=== PATIENT | female | born 1995 | race African-American/Black ===

== ENCOUNTER 2017-12-07 20:13 | Emergency (ER) | payer OTHER ==
[~2017-12-07] VITALS: Ht 170.2 cm; Wt 106.6 kg
[2017-12-07 20:31] VITALS: BP 112/72
[2017-12-07 23:35] VITALS: BP 110/74
== END 2017-12-07 23:35 | disposition home or self-care (01) ==
LOC: MED 20:13
DX: H60.92 Unspecified otitis externa, left ear (principal)
CPT/HCPCS: 99283

== ENCOUNTER 2018-07-26 07:20 | Emergency (ER) | payer OTHER ==
[~2018-07-26] VITALS: Ht 167.6 cm; Wt 96.6 kg
[2018-07-26 07:29] VITALS: BP 137/72
--- NOTE | 2018-07-26 07:50 | NUR ---
bib self with c/o 4/10 mid back radiating to upper mid back x 6 days, progressively getting worse. Patient denies any recent fall or injury to back. Patient sts she feels it is due to lifting heavy objects. DENIES N/V/D; SKIN IS PINK/WARM/DRY; AAOX4 WITH EVEN AND STEADY GAIT; LUNGS CLEAR BL; HR EVEN AND REGULAR; PT DENIES ANY FEVER, CP, SOB, OR COUGH AT THIS TIME; PATIENT STATES PAIN OF 4/10 AT THIS TIME; VSS; PATIENT POSITIONED FOR COMFORT; HOB ELEVATED; BEDRAILS UP X2; BED DOWN. ER MD MADE AWARE OF PT STATUS.
[2018-07-26] MEDS ORDERED: KETOROLAC 60 MG/2 ML VIAL IM ONE (08:10)
[2018-07-26] MEDS ORDERED: cefTRIAXone 1,000 MG in LIDOCAINE MPF 1% - 5 mL VIAL 2.1 ML IM ONE (08:45)
--- NOTE | 2018-07-26 09:36 | NUR ---
Patient discharged with v/s stable. Written and verbal after care instructions given and explained. Patient alert, oriented and verbalized understanding of instructions. Ambulatory with steady gait. All questions addressed prior to discharge. ID band removed. Patient advised to follow up with PMD. Rx of NAPROSYN AND CIPROFLOXACIN given. Patient educated on indication of medication including possible reaction and side effects BY . Opportunity to ask questions provided and answered.
== END 2018-07-26 09:36 | disposition home or self-care (01) ==
LOC: MED 07:20
DX: N39.0 Urinary tract infection, site not specified (principal)
CPT/HCPCS: 81002; 81025; 96372; 99283; J0696; J1885; J2001

== ENCOUNTER 2019-01-12 10:44 | Emergency (ER) | payer OTHER ==
[~2019-01-12] VITALS: Ht 170.2 cm; Wt 108.9 kg
[2019-01-12 10:48] VITALS: BP 127/75
--- NOTE | 2019-01-12 11:11 | NUR ---
BIB SELF. C/O RIGHT EYE PAIN X 3 DAYS AGO WORSENING TODAY, HEADACHE X 1 WEEK AGO. PT STATES MILD BLURRED VISION TO THE RIGHT EYE WHILE AWAKE THIS AM. WEAR THE GLASSESS REGULARLY. DENIES PAIN AT THIS TIME BUT PAIN IS 10/10 WHILE IT HIURTS. SITTING UP AND SWALLOWING MAKES IT WORSE .PT DENIES EYE TRAUMA/INJURY. NO EYE DISCHARGE NOTED. PT TOOK ALEEVE YESTERDAY WITH MILD RELIEF. PT DENIES DIZZINESS. PT HAS STEADY GAIT. MED HX: DENIES MED RX: DENIES ALLERGIES: DENIES
--- NOTE | 2019-01-12 11:12 | NUR ---
SANGEETA STOCKTON AT THE BEDSIDE ASSESSING THE PT.
--- NOTE | 2019-01-12 11:20 | NUR ---
Patient discharged with v/s stable. Written and verbal after care instructions given and explained. Patient alert, oriented and verbalized understanding of instructions. Ambulatory with steady gait. All questions addressed prior to discharge. ID band removed. Patient advised to follow up with PMD. Rx of SULFACETAMIDE SODIUM 10% OPTHALMIC SOLUTION given. Patient educated on indication of medication including possible reaction and side effects. Opportunity to ask questions provided and answered.
[2019-01-12 11:23] VITALS: BP 127/75
== END 2019-01-12 11:20 | disposition home or self-care (01) ==
LOC: MED 10:44
DX: S05.01XA Injury of conjunctiva and corneal abrasion without foreign body, right eye, initial encounter (principal); H52.202 Unspecified astigmatism, left eye; X58.XXXA Exposure to other specified factors, initial encounter; Y93.89 Activity, other specified; Y92.89 Other specified places as the place of occurrence of the external cause; Y99.8 Other external cause status
CPT/HCPCS: 99283

== ENCOUNTER 2019-06-26 13:41 | Emergency (ER) | payer OTHER ==
[~2019-06-26] VITALS: Ht 172.7 cm; Wt 108.9 kg
[2019-06-26 13:41] VITALS: BP 116/73
--- NOTE | 2019-06-26 13:51 | NUR ---
PT TRIAGED, SENT BACK TO [facility]
[2019-06-26] MEDS ORDERED: ALBUTEROL 0.083% 2.5 MG/3 ML NEBU INH ONE (14:35)
--- NOTE | 2019-06-26 14:36 | NUR ---
Pt placed in chair C.
--- NOTE | 2019-06-26 14:45 | NUR ---
Pt moved to bed 8.
--- NOTE | 2019-06-26 15:00 | NUR ---
PT BIB SELF C/O COUGH AND CONGESTION X 3WEEKS. PT REPORTS WHEEZING STARTED TODAY. EXPIRATORY WHEEZES THROUGHOUT, RT AT BEDSIDE. VSS. ER MD TO SEE PT. PMH:DENIES RX:DENIES
[2019-06-26] MEDS ORDERED: ALBUTEROL SULFATE/IPRATROPIU 3 ML SOL IH ONE (15:15)
[2019-06-26] MEDS ORDERED: predniSONE 20 MG TAB PO ONE (15:15)
--- NOTE | 2019-06-26 15:22 | NUR ---
PT AMBULATED TO RESTROOM TO GIVE URINE SAMPLE AT THIS TIME
--- NOTE | 2019-06-26 16:37 | NUR ---
PT RESTING IN BED, AROUSABLE TO VOICE, AAOX4. RR EVEN AND NON LABORED, WHEEZES IN ANTERIOR UPPER LT LOBE. VSS.
[2019-06-26 17:16] VITALS: BP 122/64
--- NOTE | 2019-06-26 17:16 | NUR ---
Patient discharged with v/s stable. Written and verbal after care instructions given and explained. Patient alert, oriented and verbalized understanding of instructions. Ambulatory with steady gait. All questions addressed prior to discharge. ID band removed. Patient advised to follow up with PMD. Rx of PREDNISONE, AZITHROMYCIN, AND ALBUTEROL given. Patient educated on indication of medication including possible reaction and side effects. Opportunity to ask questions provided and answered.
== END 2019-06-26 17:16 | disposition home or self-care (01) ==
LOC: MED 13:41
DX: J40 Bronchitis, not specified as acute or chronic (principal)
CPT/HCPCS: 71046; 81025; 94640; 99284; J7512; J7613; J7620

== ENCOUNTER 2019-08-03 15:47 | Emergency (ER) | payer OTHER ==
[~2019-08-03] VITALS: Ht 172.7 cm; Wt 108.9 kg
[2019-08-03 16:08] VITALS: BP 128/74
--- NOTE | 2019-08-03 16:19 | NUR ---
C/O PRODUCTIVE COUGH, R EAR PAIN, SORE THROAT 5/10 X 2 DAYS. DENIES NVD OR FEVER AT THIS TIME. MED HX: DENIES
[2019-08-03] MEDS ORDERED: ACETAMINOPHEN EXTRA STRENGTH 500 MG TAB PO ONE (16:50)
[2019-08-03] MEDS: IBUPROFEN 600 MG TAB PO ONE ×2 (17:02→17:03)
[2019-08-03 17:06] VITALS: BP 121/68
--- NOTE | 2019-08-03 17:08 | NUR ---
Patient discharged with v/s stable. Written and verbal after care instructions given and explained. Patient alert, oriented and verbalized understanding of instructions. Ambulatory with steady gait. All questions addressed prior to discharge. ID band removed. Patient advised to follow up with PMD. Rx of Promethazine DM, IBU, Augmentin given. Patient educated on indication of medication including possible reaction and side effects. Opportunity to ask questions provided and answered.
== END 2019-08-03 17:08 | disposition home or self-care (01) ==
LOC: MED 15:47
DX: H66.91 Otitis media, unspecified, right ear (principal); J06.9 Acute upper respiratory infection, unspecified
CPT/HCPCS: 99283

== ENCOUNTER 2020-09-07 13:58 | Emergency (ER) | payer OTHER ==
[~2020-09-07] VITALS: Ht 172.7 cm; Wt 108.9 kg
[2020-09-07 14:07] VITALS: BP 130/77
--- NOTE | 2020-09-07 14:10 | NUR ---
Pt ambulated to ER bed 10.
--- NOTE | 2020-09-07 14:45 | NUR ---
25 YEAR OLD FEMALE COMPLAINS OF COUGH, CONGESTION, AND SORE THROAT X 4 DAYS. PT AOX4, BREATHING EVEN AND UNLABORED, SKIN WARM AND DRY. BED IN LOWEST POSITION, LOCKED, BED RAIL UPX1. PMH - HYPOTHYROIDISM, PCOS ALLERGIES - NKA
[2020-09-07] MEDS ORDERED: CETI1TAB5 PO (14:46)
[2020-09-07] MEDS ORDERED: FLONAS NS (14:46)
[2020-09-07] MEDS ORDERED: AZIT250T3 PO (14:46)
[2020-09-07] MEDS ORDERED: PROM118S5 PO (14:46)
--- NOTE | 2020-09-07 15:07 | NUR ---
Collected GURPREET cee, walked to lab.
--- NOTE | 2020-09-07 15:10 | NUR ---
Patient discharged with v/s stable. Written and verbal after care instructions given and explained. Patient alert, oriented and verbalized understanding of instructions. Ambulatory with steady gait. All questions addressed prior to discharge. ID band removed. Patient advised to follow up with PMD. Rx of azithromycin, zyrtec D, flonase, promethazine DM given. Patient educated on indication of medication including possible reaction and side effects. Opportunity to ask questions provided and answered.
[2020-09-07 15:15] VITALS: BP 130/77
== END 2020-09-07 15:10 | disposition home or self-care (01) ==
LOC: MED 13:58
DX: J06.9 Acute upper respiratory infection, unspecified (principal); Z20.822 Contact with and (suspected) exposure to COVID-19; E07.9 Disorder of thyroid, unspecified; Z79.899 Other long term (current) drug therapy
CPT/HCPCS: 99283; U0003

== ENCOUNTER 2022-04-07 13:10 | Emergency (ER) | payer OTHER ==
[~2022-04-07] VITALS: Ht 172.7 cm; Wt 113.4 kg
[~2022-04-07 13:10] MED LIST: AZIT250T3 PO; CETI1TAB5 PO; FLONAS NS; PROM118S5 PO
--- NOTE | 2022-04-07 13:16 | NUR ---
AMBULATED TO BED 12
[2022-04-07 13:18] VITALS: BP 119/69
--- NOTE | 2022-04-07 13:22 | NUR ---
26/F WALKED IN C/O GENERALIZED ABD PAIN ONSET 3 DAYS AGO ACCOMPANIED BY 2 EPISODES OF BLACK STOOL 2 DAYS AGO. DENIES FALL OR TRAUMA. DESCRIBES PAIN SHARP INTERMITTENT. PT ALSO C/O NAUSEA AND VOMITING. DENIES DIARRHEA. AFEBRILE. DENIES ANY URINARY S/SX. PMH: PRE-DM, HYPOTHYROIDISIM, PCOS
[2022-04-07] MEDS ORDERED: KETOROLAC 15 MG/ML VIAL IVP ONE (13:30)
[2022-04-07] MEDS ORDERED: FAMOTIDINE 20 MG/2 ML VIAL IVP ONE (13:30)
[2022-04-07] MEDS ORDERED: NACL 0.9% 1,000 ML IV ONE (13:30)
--- NOTE | 2022-04-07 13:50 | NUR ---
Female Optician Apprentice [employer]pensing accompanied female patient for Rectal Exam.
[2022-04-07 13:55] LABS: BASOPHILS % (AUTO) 0.4 % (0.0-2.0); EOSINOPHILS % (AUTO) 0.6 % (0.0-4.0); HEMATOCRIT 38.7 % (36-48); HEMOGLOBIN 12.9 g/dL (12.0-16.0); LYMPHOCYTES # (AUTO) 2.4 K/uL (2.5-16.5); MEAN CORPUSCULAR HEMOGLOBIN 30 pg (27-31); MEAN CORPUSCULAR HGB CONC 33 g/dL (33-37); MEAN CORPUSCULAR VOLUME 89.9 fL (80-94); MONOCYTES # (AUTO) 0.5 K/uL (0.8-1.0); MONOCYTES % (AUTO) 9.3 % (1.7-9.3); NEUTROPHILS # (AUTO) 2.3 K/uL (1.8-7.7); NEUTROPHILS % (AUTO) 43.7 % (42.2-75.2); PLATELET COUNT (AUTO) 230 K/uL (140-450); RED CELL DISTRIBUTION WIDTH 12.8 % (11.6-13.7); WHITE BLOOD COUNT (AUTO) 5.2 K/uL (4.8-10.8)
--- NOTE | 2022-04-07 14:00 | NUR ---
LICHA SWAB COLLECTED AND WALKED TO LAB
[2022-04-07] MEDS ORDERED: PANTOPRAZOLE 40 MG INJ VIAL IVP ONE (14:05)
[2022-04-07 14:09] LABS: ALBUMIN 3.4 g/dL (3.4-5.0); ANION GAP 11.6 (8-16); CARBON DIOXIDE 26.9 mmol/L (21-32); CREATININE 0.9 mg/dL (0.6-1.3); POTASSIUM 3.5 mmol/L (3.5-5.1); TOTAL BILIRUBIN 0.2 mg/dL (0.0-1.0)
--- NOTE | 2022-04-07 14:20 | NUR ---
XR AT BEDSIDE
[2022-04-07 14:47] VITALS: BP 129/76
[2022-04-07 14:48] LABS: APPEARANCE,URINE CLEAR (CLEAR); BILIRUBIN,URINE NEGATIVE (NEGATIVE); BLOOD, URINE TRACE-I (NEGATIVE); COLOR,URINE YELLOW (YELLOW); LEUKOCYTE ESTERASE ,URINE NEGATIVE (NEGATIVE); NITRITE, URINE NEGATIVE (NEGATIVE); PH,URINE 6.5 (5.0-9.0); UGLUCOSE NEGATIVE (NEGATIVE)
[2022-04-07] MEDS ORDERED: OMEP40EC24 PO (14:51)
[2022-04-07 14:59] LABS: WBC,URINE 0-5 /HPF (0-5)
[2022-04-07 15:00] LABS: OTHER CASTS, URINE None Seen /LPF (None Seen)
--- NOTE | 2022-04-07 15:00 | NUR ---
Patient discharged with v/s stable. Written and verbal after care instructions given and explained. Patient alert, oriented and verbalized understanding of instructions. Ambulatory with steady gait. All questions addressed prior to discharge. ID band removed. Patient advised to follow up with PMD. Rx of PRILOSEC given. Patient educated on indication of medication including possible reaction and side effects. Opportunity to ask questions provided and answered.
== END 2022-04-07 15:00 | disposition home or self-care (01) ==
LOC: MED 13:10
DX: R10.13 Epigastric pain (principal); Z20.822 Contact with and (suspected) exposure to COVID-19; R42 Dizziness and giddiness; E03.9 Hypothyroidism, unspecified; Z79.899 Other long term (current) drug therapy
CPT/HCPCS: 36415; 71045; 80053; 81001; 81025; 83690; 85025; 87426; 96361; 96374; 96375; 99284; C9113; J1885; J7030; Q0092; J3490